=== PATIENT | female | born 1990 | race African-American/Black ===

== ENCOUNTER 2022-05-17 07:59 | Inpatient (IN) | payer BC ==
[2022-05-17 08:55] VITALS: BMI 29.2
[2022-05-17] MEDS ORDERED: Misoprostol 200 MCG TAB PR PRN (09:03)
[2022-05-17] MEDS ORDERED: HYDROcodone/Acetaminophen 5/325 mg Tablet PO PRN (09:03)
[2022-05-17] MEDS ORDERED: Lidocaine 1% (PF) 30 ML VIAL SC PRN (09:03)
[2022-05-17] MEDS ORDERED: Promethazine HCl 25 MG/ML VIAL IM PRN ×2 (09:03→17:43)
[2022-05-17] MEDS ORDERED: Ondansetron PF 4 MG/2 ML Vial IVP PRN ×2 (09:03→17:43)
[2022-05-17] MEDS ORDERED: Ibuprofen 800 MG TAB PO PRN (09:03)
[2022-05-17] MEDS ORDERED: hydrALAZINE 20 MG/ML VIAL SLOW IVP PRN (09:03)
[2022-05-17] MEDS ORDERED: Misoprostol 100 MCG TAB VAG SCH ×2 (09:15→10:45)
[2022-05-17] MEDS ORDERED: Lactated Ringer's 1,000 ML IV SCH (09:15)
[2022-05-17] MEDS ORDERED: Misoprostol 200 MCG TAB ONE (09:21)
[2022-05-17 09:37] LABS: Hemoglobin 12.2 g/dL (12.0-15.5); Mean Corpuscular HGB CONC 34.2 g/dL (32.0-36.0); Mean Corpuscular Volume 81.9 fl (81.6-98.3); Mean Platelet Volume 10.7 fl (7.4-10.4); Platelet Count 359 10x3/uL (150-450); RBC Distribution Width 13.7 % (11.5-14.5); Red Blood Cell (RBC) Count 4.36 10x6/uL (3.90-5.03); White Blood Cell (WBC) Count 6.2 10x3/uL (3.5-10.5)
[2022-05-17 09:57] LABS: HBSAg Index 0.12 S/CO (0-0.99); Hep B Surf Ag Non-Reactive S/CO (NonReactive)
[2022-05-17] MEDS ORDERED: ALPRAZolam 0.5 MG TAB PO PRN (09:58)
[2022-05-17 09:59] LABS: Syphilis Antibody Nonreactive (Nonreactive); Syphilis Antibody Index 0.07 S/CO (<1.00 Non-Reactive)
[2022-05-17] MEDS: hydrALAZINE 20 MG/ML VIAL ONE ×2 (10:23→12:05)
[2022-05-17] MEDS ORDERED: Butorphanol Tartrate 1 MG/ML VIAL ONE (10:45)
[2022-05-17] MEDS ORDERED: Butorphanol Tartrate 1 MG/ML VIAL SLOW IVP PRN (10:46)
[2022-05-17] MEDS ORDERED: NIFEdipine 10 MG CAP ONE (12:49)
[2022-05-17] MEDS: Misoprostol 200 MCG TAB VAG SCH ×4 (12:52→21:47)
[2022-05-17] MEDS ORDERED: Fentanyl 2 mcg/Bup 0.1% Cadd 100 ML ONE (16:49)
[2022-05-17] MEDS ORDERED: Fentanyl 100 MCG/2 ML VIAL ONE (16:58)
[2022-05-17] MEDS: Fentanyl 2 mcg/Bupivacaine 0.1% Cassette 100 ML EPIDURAL SCH (17:30)
[2022-05-17] MEDS ORDERED: Acetaminophen 325 MG TAB PO PRN (17:43)
[2022-05-17] MEDS ORDERED: Lactated Ringer's 500 ML IV PRN (17:43)
[2022-05-17] MEDS ORDERED: Moisturizing Cream (Eucerin) 113 GM JAR TOP PRN (17:43)
[2022-05-17] MEDS ORDERED: Naloxone HCl 0.4 mg/ml Vial IVP PRN ×2 (17:43)
[2022-05-17] MEDS ORDERED: diphenhydrAMINE 50 MG/ML VIAL IVP PRN (17:43)
[2022-05-17] MEDS ORDERED: ePHEDrine Sulfate 50 MG/10 ML VIAL SLOW IVP PRN (17:43)
[2022-05-17] MEDS ORDERED: Communication Order-Pharmacy FS SCH (17:45)
[2022-05-17] MEDS ORDERED: Bupivacaine 0.25% HCL 30 ML VIAL ONE (19:46)
[2022-05-18] MEDS: Fentanyl 2 mcg/Bupivacaine 0.1% Cassette 100 ML EPIDURAL SCH (07:31)
[2022-05-18] MEDS ORDERED: Labetalol HCl 100 MG/20 ML VIAL ONE (16:57)
[2022-05-18 17:08] VITALS: BP 155/113
[2022-05-18] MEDS ORDERED: Ibuprofen 800 MG TAB PO SCH (17:30)
[2022-05-18] MEDS ORDERED: Labetalol HCl 100 MG/20 ML VIAL SLOW IVP SCH (17:45)
== END 2022-05-18 18:25 | disposition home or self-care (01) | DRG 779 ==
LOC: CSHLD 07:59
PROVIDERS: ADMIT Student in an Organized Health Care Education/Training Program; ATTEND Student in an Organized Health Care Education/Training Program
PROC: 10D07Z8 Extraction of Products of Conception, Other, Via Natural or Artificial Opening (ICD-10-PCS; principal; 2022-05-18)
PROC: 3E0334Z Introduction of Serum, Toxoid and Vaccine into Peripheral Vein, Percutaneous Approach (ICD-10-PCS; 2022-05-18)
DX: O02.1 Missed abortion (principal); O26.893 Other specified pregnancy related conditions, third trimester; Z67.11 Type A blood, Rh negative
CPT/HCPCS: 36415; 51702; 85027; 86780; 86850; 86900; 86901; 87340; 88305; 90384; 96372; J0360; J0595; J2405; J3010; J7120; S0020